=== PATIENT | female | born 1975 | race Caucasian/White ===

== ENCOUNTER 2019-03-02 08:48 | Emergency (ER) | payer SELFPAY ==
[2019-03-02 08:52] VITALS: BP 138/62; PULSE 95; RESP 14; TEMP 37.3; O2SAT 99
--- NOTE | 2019-03-02 09:01 | W.ED.GENAD ---
Discharge Plan Disposition Patient Disposition: HOME Condition: Stable Discharge Details Chief Complaint: Orthopedic Clinical Impression: Left ankle sprain Primary Care Provider: Vikas Finney ED Provider: Ashok Boudreaux Home Meds and New Rx's Prescriptions: No Action No Known Home Meds RF: 0 Discharge Instructions Instructions: Ankle Sprain (ED) Medical Decision Making Patient states around 7am today she was getting something off the fridge and stepping off the step stool she thinks she rolled her left ankle. no loc or significant head trauma. Only has pain in the left ankle laterally. Has pain with palpation to the lateral malleolus on exam, does have full rom of the ankle and foot though has pain in the ankle with rom. Given full rom doubt achilles injury. will xray to eval for fx. no pain over metatarsals so doubt lis franc fx. intact sensation and 2+ dp/pt pulses xray negative on my read, will place in ankle stirrup support device and advised f/u with pcp if still in pain in a week. Differential Diagnosis sprain, fx, contusion Imaging Data Radiologic Study: Attestation: I personally reviewed and interpreted this imaging study as follows: Imaging: X-Ray My impression: no acute findings HPI General Mode of arrival: ambulatory. Date/Time Provider Initiated Documentation: 03/02/19 08:58. Limitations to Documentation: no limitations. Information obtained by: patient. History of Present Illness 43 year old F presents to the emergency department with the chief complaint of left ankle pain, described as moderate, Quality is described as aching, and is localized to the left and lower extremity. Patient reports no radiation. Patient started experiencing this hour(s) (2) and it has been constant. Rest improves symptom(s), Movement worsens symptoms . Patient notes no other symptoms.. Patient did receive the following treatments prior to arrival, none Related Data Home Medications Medication Instructions Recorded Confirmed Unknown [No Known Home Meds] 03/02/19 03/02/19 Allergies Allergy/AdvReac Type Severity Reaction Status Date / Time cephalexin [From Keflex] Allergy Unverified 03/02/19 08:58 erythromycin base Allergy Unverified 03/02/19 08:58 Penicillins Allergy Unverified 03/02/19 08:58 General Stated Complaint: Orthopedic GONZÁLEZ: 4 Review of Systems Review of Systems All systems reviewed & are unremarkable except as noted in HPI and below Constitutional Denies chills and Denies fever(s) Cardiovascular Denies chest pain and Denies dyspnea Respiratory Denies cough and Denies dyspnea Gastrointestinal Denies abdominal pain, Denies nausea and Denies vomiting Integumentary/Breasts Denies rash PFSH Social History Smoking/Tobacco Use Status: Never Alcohol Intake: never Drug use: Never Substance use type: does not use Do you feel safe at home: Yes Do you feel safe in your relationship?: Yes Exam Const General: no acute distress Orientation: alert HENMT Head: normal to inspection Ears: external ears normal General nose exam: external nose normal Mouth: moist mucous membranes Eyes General: appearance normal, both eyes and all related structures Neck Neck: normal visual inspection Resp Effort & Inspection: normal respiratory effort and able to speak in complete sentences Cardio Rate: regular rate Skin General skin exam: no rashes or lesions noted Neuro General: alert and oriented x3 Extrem General: full ROM and normal capillary refill Psych Mental Status: mental status grossly normal Course Vital Signs Temperature 37.3 C 03/02/19 08:52 Pulse 95 H 03/02/19 08:52 Respiratory Rate 14 03/02/19 08:52 Blood Pressure 138/62 03/02/19 08:52 Pulse Oximetry 99 03/02/19 08:52 Temperature 37.3 C 03/02/19 08:52 Temperature Source Temporal Artery Scan 03/02/19 08:52 Pulse 95 H 03/02/19 08:52 Respiratory Rate 14 03/02/19 08:52 Respiratory Effort Non-Labored 03/02/19 08:56 Blood Pressure 138/62 03/02/19 08:52 Blood Pressure Position Sitting 03/02/19 08:52 Pulse Oximetry 99 03/02/19 08:52 Oxygen Delivery Method Room Air 03/02/19 08:52 Oxygen Flow Rate 0 03/02/19 08:52 Pain Level 4 03/02/19 08:57
--- NOTE | 2019-03-02 09:05 | ED.GENADUL_ITS ---
Discharge Plan Disposition Patient Disposition: HOME Condition: Stable Discharge Details Chief Complaint: Orthopedic Clinical Impression: Left ankle sprain Primary Care Provider: Vikas Finney ED Provider: Ashok Boudreaux Home Meds and New Rx's Prescriptions: No Action No Known Home Meds RF: 0 Discharge Instructions Instructions: Ankle Sprain (ED) Medical Decision Making Patient states around 7am today she was getting something off the fridge and stepping off the step stool she thinks she rolled her left ankle. no loc or significant head trauma. Only has pain in the left ankle laterally. Has pain with palpation to the lateral malleolus on exam, does have full rom of the ankle and foot though has pain in the ankle with rom. Given full rom doubt achilles injury. will xray to eval for fx. no pain over metatarsals so doubt lis franc fx. intact sensation and 2+ dp/pt pulses xray negative on my read, will place in ankle stirrup support device and advised f/u with pcp if still in pain in a week. Differential Diagnosis sprain, fx, contusion Imaging Data Radiologic Study: Attestation: I personally reviewed and interpreted this imaging study as follows: Imaging: X-Ray My impression: no acute findings HPI General Mode of arrival: ambulatory . Date/Time Provider Initiated Documentation: 03/02/19 08:58 . Limitations to Documentation: no limitations . Information obtained by: patient . History of Present Illness 43 year old F presents to the emergency department with the chief complaint of left ankle pain, described as moderate, Quality is described as aching, and is localized to the left and lower extremity. Patient reports no radiation. Patient started experiencing this hour(s) (2) and it has been constant. Rest improves symptom(s), Movement worsens symptoms . Patient notes no other symptoms.. Patient did receive the following treatments prior to arrival, none Related Data Home Medications Medication Instructions Recorded Confirmed Unknown [No Known Home Meds] 03/02/19 03/02/19 Allergies Allergy/AdvReac Type Severity Reaction Status Date / Time cephalexin [From Keflex] Allergy Unverified 03/02/19 08:58 erythromycin base Allergy Unverified 03/02/19 08:58 Penicillins Allergy Unverified 03/02/19 08:58 General Stated Complaint: Orthopedic GONZÁLEZ: 4 Review of Systems Review of Systems All systems reviewed & are unremarkable except as noted in HPI and below Constitutional Denies chills and Denies fever(s) Cardiovascular Denies chest pain and Denies dyspnea Respiratory Denies cough and Denies dyspnea Gastrointestinal Denies abdominal pain, Denies nausea and Denies vomiting Integumentary/Breasts Denies rash PFSH Social History Smoking/Tobacco Use Status: Never Alcohol Intake: never Drug use: Never Substance use type: does not use Do you feel safe at home: Yes Do you feel safe in your relationship?: Yes Exam Const General: no acute distress Orientation: alert HENMT Head: normal to inspection Ears: external ears normal General nose exam: external nose normal Mouth: moist mucous membranes Eyes General: appearance normal, both eyes and all related structures Neck Neck: normal visual inspection Resp Effort & Inspection: normal respiratory effort and able to speak in complete sentences Cardio Rate: regular rate Skin General skin exam: no rashes or lesions noted Neuro General: alert and oriented x3 Extrem General: full ROM and normal capillary refill Psych Mental Status: mental status grossly normal Course Vital Signs Temperature 37.3 C 03/02/19 08:52 Pulse 95 H 03/02/19 08:52 Respiratory Rate 14 03/02/19 08:52 Blood Pressure 138/62 03/02/19 08:52 Pulse Oximetry 99 03/02/19 08:52 Temperature 37.3 C 03/02/19 08:52 Temperature Source Temporal Artery Scan 03/02/19 08:52 Pulse 95 H 03/02/19 08:52 Respiratory Rate 14 03/02/19 08:52 Respiratory Effort Non-Labored 03/02/19 08:56 Blood Pressure 138/62 03/02/19 08:52 Blood Pressure Position Sitting 03/02/19 08:52 Pulse Oximetry 99 03/02/19 08:52 Oxygen Delivery Method Room Air 03/02/19 08:52 Oxygen Flow Rate 0 03/02/19 08:52 Pain Level 4 03/02/19 08:57
--- NOTE | 2019-03-02 09:11 | DI.RAD_ITS ---
SYMPTOM/DIAGNOSIS: PAIN, S/P FALL LEFT ANKLE: Three views. No acute fracture or dislocation is seen. No radiopaque foreign bodies are seen in the soft tissues. IMPRESSION: No acute abnormality.
== END 2019-03-02 09:23 | disposition home or self-care (01) ==
LOC: ER 09:34
PROVIDERS: Emergency Provider Emergency Medicine; PCP Family Medicine
DX: S93.402A Sprain of unspecified ligament of left ankle, initial encounter (principal); W18.49XA Other slipping, tripping and stumbling without falling, initial encounter
CPT/HCPCS: 29515; 99283; 73610; 99282; L1902